=== PATIENT | female | born 1995 | race Caucasian/White ===

== ENCOUNTER 2025-08-29 13:19 | Day surgery (SDC) | payer OTHER ==
[2025-08-29] MEDS ORDERED: BUPIVACAINE 0.5% VIAL IJ ONE (13:20)
[2025-08-29 14:03] LABS: HCG URINE TEST NEGATIVE (NEGATIVE)
[2025-08-29] MEDS ORDERED: propofoL IV ONE (15:59)
--- NOTE | 2025-08-29 17:04 | XRAY ---
Indication: Right C2-C4 MBB. Intraoperative fluoroscopy provided for 13 seconds. 3 digital spot image submitted for interpretation demonstrates posterior needle tips projecting over expected right C2-C4 nerve roots. Correlate with intraoperative findings/report.
--- NOTE | 2025-08-29 17:06 | XRAY ---
13 seconds of fluoroscopy were used in surgery for a right C2-C4 MBB.
[2025-08-29] MEDS ORDERED: Lactated Ringers 1,000 ML IV ONE (18:12)
== END 2025-08-29 16:35 | disposition home or self-care (01) ==
LOC: SDC-PAIN 13:19
PROVIDERS: ATTEND Psychiatry & Neurology Pain Medicine
DX: M47.812 Spondylosis without myelopathy or radiculopathy, cervical region (principal)

== ENCOUNTER 2025-09-19 13:42 | Day surgery (SDC) | payer OTHER ==
[2025-09-19] MEDS ORDERED: BUPIVACAINE 0.5% VIAL IJ ONE (13:43)
[2025-09-19] MEDS ORDERED: LIDOCAINE HCL 1% 50 MG/5 ML VL IJ ONE (13:43)
[2025-09-19 15:08] LABS: HCG URINE TEST NEGATIVE (NEGATIVE)
[2025-09-19] MEDS ORDERED: propofoL IV ONE (16:52)
[2025-09-19] MEDS ORDERED: Lactated Ringers 1,000 ML IV ONE (17:23)
--- NOTE | 2025-09-19 20:05 | XRAY ---
Indication: Right C2-C4 RFA. Intraoperative fluoroscopy provided for 10 seconds. 2 digital spot image submitted for interpretation demonstrates posterior needle tips projecting over expected right C2-C4 nerve roots. Correlate with intraoperative findings/report
--- NOTE | 2025-09-19 20:12 | XRAY ---
10 seconds of fluoroscopy used in surgery for a right C2-C4 RFA.
== END 2025-09-19 17:35 | disposition home or self-care (01) ==
LOC: SDC-PAIN 13:42
PROVIDERS: ATTEND Psychiatry & Neurology Pain Medicine
DX: M47.812 Spondylosis without myelopathy or radiculopathy, cervical region (principal)